=== PATIENT | female | born 1990 | race African-American/Black ===

== ENCOUNTER 2023-05-05 08:09 | Emergency (ER) | payer BC ==
[2023-05-05 08:56] LABS: #Monocytes 0.4 10x3/uL (0.0-1.1); #Neutrophils 1.7 10x3/uL (1.5-8.4); %Basophils 0.3 % (0.0-2.0); %Eosinophils 0.7 % (0.0-6.0); %Monocytes 11.6 % (0.0-10.0); %Neutrophils 54.4 % (40.0-75.0); Hematocrit 40.5 % (34.9-44.5); Hemoglobin 13.3 g/dL (12.0-15.5); Mean Corpuscular HGB CONC 32.8 g/dL (32.0-36.0); Mean Corpuscular Hemoglobin 27.2 pg (27.0-33.0); Mean Corpuscular Volume 82.8 fl (81.6-98.3); Mean Platelet Volume 10.3 fl (7.4-10.4); Platelet Count 213 10x3/uL (150-450); RBC Distribution Width 13.7 % (11.5-14.5); Red Blood Cell (RBC) Count 4.89 10x6/uL (3.90-5.03)
[2023-05-05] MEDS ORDERED: Ibuprofen 200 MG TAB ONE (08:58)
[2023-05-05] MEDS ORDERED: Ipratropium/Albuterol 3 ML NEB ONE (09:02)
[2023-05-05 09:11] LABS: BHCG - Serum Negative (NEGATIVE); Pregs Control Bar Appear? YES (CONTROL BAR)
[2023-05-05 09:12] LABS: Pregs Control Background? CLEAR/WHITE (CLR/WHITE)
[2023-05-05 09:25] LABS: ALT (SGPT) 13 U/L (8-55); AST (SGOT) 21 U/L (5-34); Albumin 4.1 g/dL (3.5-5.0); Alkaline Phosphatase 57 U/L (40-110); Anion Gap 14 mmol/L (10-20); BUN (Urea Nitrogen) 5 mg/dL (7.0-18.7); Bilirubin, Total 0.3 mg/dL (0.2-1.2); Calc. Creatinine Clearance 0 mL/min (70-130); Calcium 8.8 mg/dL (7.8-10.44); Carbon Dioxide 24 mmol/L (22-29); Chloride 101 mmol/L (98-107); Estimated GFR 99; Globulin 3.3 g/dL (2.4-3.5); Glucose 94 mg/dL (70-105); Potassium 3.4 mmol/L (3.5-5.1); Protein, Total 7.4 g/dL (6.0-8.3); Sodium 136 mmol/L (136-145)
[2023-05-05 09:45] LABS: SARS-CoV-2 NAA Rapid Test Not Detected (NotDetected)
[2023-05-05] MEDS ORDERED: Iopamidol 370 76% 100 ML VIAL ONE (12:04)
== END 2023-05-05 11:10 | disposition home or self-care (01) ==
LOC: CSHERS 08:09
DX: J10.1 Influenza due to other identified influenza virus with other respiratory manifestations (principal); Z20.822 Contact with and (suspected) exposure to COVID-19
CPT/HCPCS: 71045; 71275; 80053; 84703; 85025; 85379; 87081; 87430; 93005; 94760; 96360; J7620; Q9967